=== PATIENT | female | born 1995 | race Caucasian/White ===

== ENCOUNTER 2016-08-02 20:01 | Emergency (ER) | payer OTHER ==
[2016-08-02 20:14] VITALS: BP 112/76; PULSE 77; RESP 16; TEMP 98.4; O2SAT 98
[2016-08-02] MEDS ORDERED: AZITHROMYCIN 250 MG TAB PO ONE (20:25)
--- NOTE | 2016-08-02 20:29 | UCPHY ---
H & P Patient Type: Established Chief Complaint Nursing Narrative: Bilat ear pain since yesterday. States L ear is worse than R ear. Denies fever. Time Seen by Provider: 08/02/16 20:18 HPI/ROS: CHIEF COMPLAINT: Ear pain HISTORY OF PRESENT ILLNESS: The patient is a 21-year-old female who comes to the emergency department complaining of left-sided ear pain and " crackling". She states that the symptoms began 2 days ago. She has had an upper respiratory tract infection for the last week. She has not had a fever. She denies any other significant medical complaints or history. REVIEW OF SYSTEMS: Constitutional: denies: chills, fever, recent illness, recent injury EENTM: See HPI Respiratory: denies: cough, shortness of breath Cardiac: denies: chest pain, irregular heart rate, lightheadedness, palpitations Gastrointestinal/Abdominal: denies: abdominal pain, diarrhea, nausea, vomiting, blood streaked stools Genitourinary: denies: dysuria, frequency, hematuria, pain Musculoskeletal: denies: joint pain, muscle pain Skin: denies: lesions, rash, jaundice, bruising Neurological: denies: headache, numbness, paresthesia, tingling, dizziness, weakness Hematologic/Lymphatic: denies: blood clots, easy bleeding, easy bruising Immunologic/allergic: denies: HIV/AIDS, transplant EXAM: GENERAL: Well-appearing, well-nourished and in no acute distress. HEAD: Atraumatic, normocephalic. EYES: Pupils equal round and reactive to light, extraocular movements intact, sclera anicteric, conjunctiva are normal. ENT: left tympanic membrane erythematous with bulging purulent effusion , nares patent, oropharynx clear without exudates. Moist mucous membranes. NECK: Normal range of motion, supple without lymphadenopathy or JVD. LUNGS: Breath sounds clear to auscultation bilaterally and equal. No wheezes rales or rhonchi. HEART: Regular rate and rhythm without murmurs, rubs or gallops. ABDOMEN: Soft, nontender, normoactive bowel sounds. No guarding, no rebound. No masses appreciated. BACK: No CVA tenderness, no spinal tenderness, step-offs or deformities EXTREMITIES: Normal range of motion, no pitting or edema. No clubbing or cyanosis. NEUROLOGICAL: Cranial nerves II through XII grossly intact. Normal speech, normal gait. 5/5 strength, normal movement in all extremities, normal sensation PSYCH: Normal mood, normal affect. SKIN: Warm, dry, normal turgor, no visible rashes or lesions. Source: Patient Exam Limitations: No limitations - Personal History LMP (Females 10-55): Extended Cycle BCP/Inj Current Tetanus Diphtheria and Acellular Pertussis (TDAP): Yes Tetanus Vaccine Date: 2015 - Medical/Surgical History Hx Asthma: No Hx Chronic Respiratory Disease: No Hx Diabetes: No Hx Cardiac Disease: No Hx Renal Disease: No Hx Cirrhosis: No Hx Alcoholism: No Hx HIV/AIDS: No Hx Splenectomy or Spleen Trauma: No Other PMH: Depression, anxiety, ADD - Family History Significant Family History: No pertinent family hx - Social History Smoking Status: Never smoked Alcohol Use: Sober Drug Use: None Constitutional: Initial Vital Signs Temperature (C) 36.9 C 08/02/16 20:11 Heart Rate 77 08/02/16 20:11 Respiratory Rate 16 08/02/16 20:11 Blood Pressure 112/76 08/02/16 20:11 O2 Sat (%) 98 08/02/16 20:11 O2 Delivery Mode Room Air Allergies/Adverse Reactions: No Known Allergies Allergy (Verified 08/02/16 20:14) Home Medications: Medication Instructions Recorded LAMOTRIGINE 01/28/16 Wellbutrin 100mg (*) 01/28/16 Lawanda 28 Tablet 01/28/16 AZITHROMYCIN [Z-PACK] 250 mg PO DAILY #4 tab 08/02/16 Adderall 10 MG (*) 08/02/16 Medical Decision Making ED Course/Re-evaluation: The patient has otitis media on the left. I will treat her with antibiotics. We also discussed [id number] decongestants and pain control. She is happy with this plan and declines further workup or testing at this time. Differential Diagnosis: Partial list of the Differential diagnosis considered include but were not limited to; otitis media, cerumen impaction, otitis externa and although unlikely based on the history and physical exam, I also considered malignant otitis, trauma, vestibulitis. I discussed these differential diagnoses and the plan with the patient as well as the usual and expected course. The patient understands that the diagnosis is provisional and that in medicine we are not always correct and that further workup is often warranted. Usual and customary warnings were given. All of the patient's questions were answered. The patient was instructed to return to the emergency department should the symptoms at all worsen or return, otherwise to followup with the physician as we discussed. Departure - Departure Disposition: Home, Routine, Self-Care Clinical Impression: Otitis media Qualifiers: Otitis media type: suppurative Laterality: left Chronicity: acute Recurrence: not specified as recurrent Spontaneous tympanic membrane rupture: without spontaneous rupture Qualified Code(s): H66.002 - Acute suppurative otitis media without spontaneous rupture of ear drum, left ear Condition: Fair Instructions: Otitis Media (ED) Referrals: FILI NUNEZ [Primary Care Provider] - As per Instructions Prescriptions: AZITHROMYCIN [Z-PACK] 250 mg PO DAILY #4 tab - PQRS PQRS Measurement: Not applicable
== END 2016-08-02 20:37 | disposition home or self-care (01) ==
LOC: CED 20:01
DX: H66.002 Acute suppurative otitis media without spontaneous rupture of ear drum, left ear (principal)
CPT/HCPCS: G0463-PO